=== PATIENT | male | born 1975 | race Caucasian/White ===

== ENCOUNTER 2021-06-10 18:54 | Emergency (ER) | payer OTHER ==
[2021-06-10 19:13] VITALS: BP 147/107; PULSE 80; TEMP 98.6; BMI 24.4
[2021-06-10 20:11] LABS: BILIRUBIN,TOTAL 1.5 mg/dl (0.2-1); CALCIUM 9.3 mg/dl (8.5-10); TOT PROT 8.3 g/dl (6.4-8.2)
[2021-06-10 20:14] LABS: HEMATOCRIT 51.5 % (35.4-49); HEMOGLOBIN 17.7 GM/dl (11.7-16.9); MCH 31.7 pg (25.7-33.7); MCHC 34.3 g/dl (32.0-35.9); MEAN CELL VOLUME 92.4 fl (80-96); MEAN PLT VOLUME 7.5 fl (7.5-11.1); PLATELET COUNT 369 10^3/uL (134-434); RBC 5.57 M/mm3 (4.00-5.60); RDW 12.3 % (11.9-15.9); WHITE BLOOD COUNT 12.2 K/mm3 (4.0-10.8)
[2021-06-10] MEDS ORDERED: ACETAMINOPHEN 500 MG TABLET (FP) PO ONE (21:31)
[2021-06-10] MEDS ORDERED: ACETAMINOPHEN 500 MG TABLET (FP) ONE (21:34)
[2021-06-10 21:49] LABS: PLATELET ESTIMATE ADEQUATE
== END 2021-06-10 21:38 | disposition home or self-care (01) ==
LOC: FER 18:54
DX: R10.11 Right upper quadrant pain (principal)
CPT/HCPCS: 36415; 76705-TC; 80053; 85025; 99284-25